=== PATIENT | female | born 1985 | race Caucasian/White ===

== ENCOUNTER 2022-07-11 08:45 | Inpatient (IN) | payer OTHER ==
[~2022-07-11] VITALS: Ht 157.5 cm; Wt 57.6 kg
[2022-07-11] MEDS ORDERED: SYNTHROID75 MCG PO (08:53)
[2022-07-11] MEDS ORDERED: XULANE PATCH1 EACH TD (08:54)
[2022-07-11] MEDS ORDERED: PROPRANOLOL HCL40 MG PO (08:54)
--- NOTE | 2022-07-11 08:54 | NUR ---
SE RECIBE PTE FEMENINA DE 36 ANOS ALERTA Y ORIENTADO X3 QUIEN AL MOMENTO REFIER LEVE DOLOR PELVICO EL CUAL REFIER SER UN 3 EN LA ESCALA DEL 0 AL 10. PTE AL MOMENTO REFIER SANGRADO VAGINAL ABUNDANTE. SE MONITOREAN S/V Y SE UBICA EN ISSA 6. SE EDUC A PTE SOBRE TX MED A RECIBIR Y PTE REFIERE ENTENDER. SE UMBERTO MUESTRAS DE LAB Y SE ENVIAN LAS MISMAS. PTE PEND A RESULTADOS DE LAB.
== END 2022-07-13 16:34 | disposition home or self-care (01) | DRG 761 ==
LOC: ER 08:45 → MEDI 15:52 → SEC-K 15:52 → MEDI 16:10
PROVIDERS: ADMIT Internal Medicine; ATTEND Internal Medicine
PROC: 30233N1 Transfusion of Nonautologous Red Blood Cells into Peripheral Vein, Percutaneous Approach (ICD-10-PCS; 2022-07-11)
PROC: BW4GZZZ Ultrasonography of Pelvic Region (ICD-10-PCS; principal; 2022-07-12)
DX: N93.8 Other specified abnormal uterine and vaginal bleeding (principal); D50.0 Iron deficiency anemia secondary to blood loss (chronic); N92.4 Excessive bleeding in the premenopausal period; E03.9 Hypothyroidism, unspecified; D25.9 Leiomyoma of uterus, unspecified; N84.0 Polyp of corpus uteri; R55 Syncope and collapse; Z20.822 Contact with and (suspected) exposure to COVID-19